=== PATIENT | female | born 2000 | race Caucasian/White ===

== ENCOUNTER 2025-02-03 12:47 | Day surgery (SDC) | payer BC ==
[2025-02-03 13:28] VITALS: BMI 35.7
== END 2025-02-03 16:10 | disposition home or self-care (01) ==
LOC: CSHLD/OP 12:47
PROVIDERS: ATTEND Student in an Organized Health Care Education/Training Program
DX: O36.8130 Decreased fetal movements, third trimester, not applicable or unspecified (principal); Z3A.33 33 weeks gestation of pregnancy
CPT/HCPCS: 76819; 96360; 99283

== ENCOUNTER 2025-03-01 20:15 | Day surgery (SDC) | payer BC ==
[2025-03-01] MEDS ORDERED: hydrALAZINE 20 MG/ML VIAL SLOW IVP PRN (20:37)
[2025-03-01 21:01] VITALS: BMI 36.6
[2025-03-01 21:29] LABS: #Basophils Less than 0.03 10x3/uL (0.0-0.2); #Eosinophils 0.06 10x3/uL (0.0-0.5); #Monocytes 0.94 10x3/uL (0.0-1.1); #Neutrophils 7.14 10x3/uL (1.5-8.4); %Basophils 0.2 % (0.0-2.0); %Eosinophils 0.6 % (0.0-6.0); %Lymphocytes 19.8 % (18.0-47.0); %Monocytes 9.2 % (0.0-10.0); %Neutrophils 69.7 % (40.0-75.0); Hematocrit 33.3 % (34.9-44.5); Hemoglobin 11.4 g/dL (12.0-15.5); Mean Corpuscular Hemoglobin 29.1 pg (27.0-33.0); Mean Corpuscular Volume 84.9 fL (81.6-98.3); Platelet Count 211 10x3/uL (150-450); Red Blood Cell (RBC) Count 3.92 10x6/uL (3.90-5.03); White Blood Cell (WBC) Count 10.24 10x3/uL (3.5-10.5)
[2025-03-01 21:41] LABS: ALT (SGPT) 16 U/L (Less than 34); AST (SGOT) 28 U/L (11-34); Albumin 2.9 g/dL (3.1-4.5); Alkaline Phosphatase 122 U/L (40-110); Anion Gap 13 mmol/L (10-20); BUN (Urea Nitrogen) 11 mg/dL (7.0-18.7); Bilirubin, Total 0.2 mg/dL (0.3-1.2); Calc. Creatinine Clearance 201 mL/min (70-130); Calcium 9.6 mg/dL (7.8-10.44); Carbon Dioxide 21 mmol/L (22-29); Chloride 106 mmol/L (98-107); Globulin 3.5 g/dL (2.4-3.5); Glucose 80 mg/dL (70-105); Potassium 4.3 mmol/L (3.5-5.1); Sodium 136 mmol/L (136-145)
== END 2025-03-02 09:20 | disposition home or self-care (01) ==
LOC: CSHLD/OP 20:15
PROVIDERS: ATTEND Student in an Organized Health Care Education/Training Program
DX: O10.913 Unspecified pre-existing hypertension complicating pregnancy, third trimester (principal); O12.03 Gestational edema, third trimester; O24.415 Gestational diabetes mellitus in pregnancy, controlled by oral hypoglycemic drugs; Z3A.36 36 weeks gestation of pregnancy
CPT/HCPCS: 36415; 76819; 80053; 82570; 84156; 85025; 99284

== ENCOUNTER 2025-03-09 18:00 | Inpatient (IN) | payer BC ==
[2025-03-09 20:33] VITALS: BMI 36.6
[2025-03-09] MEDS ORDERED: Lidocaine 1% (PF) 30 ML VIAL SC PRN (22:34)
[2025-03-09] MEDS ORDERED: Carboprost 250 MCG/ML AMP IM PRN (22:34)
[2025-03-09] MEDS ORDERED: Tranexamic Acid 1,000 MG/10 ML VIAL IVP PRN (22:34)
[2025-03-09] MEDS ORDERED: Acetaminophen 500 MG TAB PO PRN (22:34)
[2025-03-09] MEDS ORDERED: Diphenoxylate HCl/Atropine Tablet PO PRN (22:34)
[2025-03-09] MEDS ORDERED: HYDROcodone/Acetaminophen 5/325 mg Tablet PO PRN (22:34)
[2025-03-09] MEDS ORDERED: Ibuprofen 800 MG TAB PO PRN (22:34)
[2025-03-09] MEDS ORDERED: Methylergonovine 0.2 MG/ML VIAL IM PRN (22:34)
[2025-03-09] MEDS ORDERED: Ondansetron PF 4 MG/2 ML Vial IVP PRN (22:34)
[2025-03-09 22:43] LABS: Hematocrit 32.2 % (34.9-44.5); Hemoglobin 11.1 g/dL (12.0-15.5); Mean Corpuscular Hemoglobin 29.7 pg (27.0-33.0); Mean Corpuscular Volume 86.1 fL (81.6-98.3); Platelet Count 205 10x3/uL (150-450); Red Blood Cell (RBC) Count 3.74 10x6/uL (3.90-5.03); White Blood Cell (WBC) Count 10.19 10x3/uL (3.5-10.5)
[2025-03-09] MEDS ORDERED: Oxytocin 30 units/NS 500 ML 500 ML IV SCH (22:45)
[2025-03-09 22:55] LABS: ALT (SGPT) 12 U/L (Less than 34); AST (SGOT) 16 U/L (11-34); Albumin 2.9 g/dL (3.1-4.5); Alkaline Phosphatase 119 U/L (40-110); Anion Gap 16 mmol/L (10-20); BUN (Urea Nitrogen) 10 mg/dL (7.0-18.7); Bilirubin, Total 0.3 mg/dL (0.3-1.2); Calc. Creatinine Clearance 217 mL/min (70-130); Calcium 8.6 mg/dL (7.8-10.44); Carbon Dioxide 17 mmol/L (22-29); Chloride 107 mmol/L (98-107); Globulin 3.0 g/dL (2.4-3.5); Glucose 116 mg/dL (70-105); Potassium 3.8 mmol/L (3.5-5.1); Sodium 136 mmol/L (136-145)
[2025-03-09 23:18] LABS: Syphilis Antibody Index 0.05 S/CO (<1.00 Non-Reactive)
[2025-03-09 23:29] LABS: Hep B Surf Ag - L&D Non-Reactive S/CO (NonReactive)
[2025-03-09 23:51] LABS: Glucose 117 mg/dL (70-105)
[2025-03-10] MEDS: hydrALAZINE 20 MG/ML VIAL SLOW IVP PRN (05:48)
[2025-03-10] MEDS: fentaNYL/Ropivacaine Epidural 100 ML ONE (08:55)
[2025-03-10] MEDS ORDERED: diphenhydrAMINE 50 MG/ML VIAL IVP PRN (09:06)
[2025-03-10] MEDS ORDERED: Ondansetron PF 4 MG/2 ML Vial IVP PRN ×2 (09:06→22:54)
[2025-03-10] MEDS ORDERED: Acetaminophen 325 MG TAB PO PRN (09:06)
[2025-03-10] MEDS ORDERED: Communication Order-Pharmacy FS SCH (09:15)
[2025-03-10] MEDS: Famotidine/PF 20 mg/2ml Vial SLOW IVP SCH (10:53)
[2025-03-10] MEDS: Oxytocin 30 units/NS 500 ML 500 ML IV SCH (13:08)
[2025-03-10] MEDS: fentaNYL 2 mcg/Ropivacaine 0.2% Epidural 100 ML CADD EPIDURAL SCH (17:55)
[2025-03-10] MEDS ORDERED: Milk Of Magnesia 30 ML UDCUP PO PRN (22:54)
[2025-03-10] MEDS ORDERED: Lanolin Ointment 7 GM TUBE TOP PRN (22:54)
[2025-03-10] MEDS ORDERED: Benzocaine-Menthol 82.5 ML CAN TOP PRN (22:54)
[2025-03-10] MEDS ORDERED: HYDROcodone/Acetaminophen 5/325 mg Tablet PO PRN ×2 (22:54)
[2025-03-10] MEDS ORDERED: Preparation H Ointment 28 GM TUBE PR PRN (22:54)
[2025-03-10] MEDS ORDERED: Bisacodyl 10 MG SUPP PR PRN (22:54)
[2025-03-10] MEDS ORDERED: diphenhydrAMINE 25 MG CAP PO PRN (22:54)
[2025-03-10] MEDS ORDERED: hydrALAZINE 20 MG/ML VIAL SLOW IVP PRN (22:54)
[2025-03-11] MEDS: Ibuprofen 800 MG TAB PO SCH (05:34)
[2025-03-11] MEDS: Ferrous Sulfate 325 MG TAB PO SCH (07:32)
[2025-03-11] MEDS: Acetaminophen 500 MG TAB PO PRN (11:16)
[2025-03-11] MEDS: NIFEdipine XL 30 MG ER.TAB PO SCH (13:13)
[2025-03-12] MEDS: NIFEdipine XL 30 MG ER.TAB PO SCH (09:02)
[2025-03-12 12:14] VITALS: TEMP 98.2
[2025-03-12 14:13] VITALS: BP 126/77
== END 2025-03-12 18:35 | disposition home or self-care (01) | DRG 807 ==
LOC: CSHLD 19:55 → CSHPP 03-10 22:30
PROVIDERS: ADMIT Student in an Organized Health Care Education/Training Program; ATTEND Student in an Organized Health Care Education/Training Program
PROC: 10E0XZZ Delivery of Products of Conception, External Approach (ICD-10-PCS; principal; 2025-03-10)
PROC: 0KQM0ZZ Repair Perineum Muscle, Open Approach (ICD-10-PCS; 2025-03-10)
PROC: 4A1HXCZ Monitoring of Products of Conception, Cardiac Rate, External Approach (ICD-10-PCS; 2025-03-10)
PROC: 3E0P7VZ Introduction of Hormone into Female Reproductive, Via Natural or Artificial Opening (ICD-10-PCS; 2025-03-10)
DX: O24.425 Gestational diabetes mellitus in childbirth, controlled by oral hypoglycemic drugs (principal); Z37.0 Single live birth; O13.4 Gestational [pregnancy-induced] hypertension without significant proteinuria, complicating childbirth; Z3A.38 38 weeks gestation of pregnancy; O70.1 Second degree perineal laceration during delivery; O69.81X0 Labor and delivery complicated by cord around neck, without compression, not applicable or unspecified; Z79.84 Long term (current) use of oral hypoglycemic drugs; Z79.82 Long term (current) use of aspirin
CPT/HCPCS: 36415; 36416; 51702; 80053; 85027; 86780; 86850; 86900; 86901; 87340; J0360; J0595; J1308; J2590; J7120